=== PATIENT | female | born 1980 | race Caucasian/White ===

== ENCOUNTER 2016-05-08 18:42 | Emergency (ER) | payer MEDICAID, MEDICARE ==
[2016-05-08 18:54] VITALS: BP 131/50
[2016-05-08] MEDS ORDERED: Azithromycin TAB* 250 MG PO ONE (19:03)
[2016-05-08] MEDS ORDERED: Benzonatate CAP* 100 MG PO ONE (19:04)
--- NOTE | 2016-05-08 19:17 | UC ---
Respiratory Complaint HPI - HPI Summary HPI Summary: pt c/o URI symptoms for 4 weeks. c/o cough, chest congestion, SOB has worsened over last week. - History of Current Complaint Chief Complaint: UCGeneralIllness Stated Complaint: UPPER RESPIRATORY Time Seen by Provider: 05/08/16 18:53 Hx Obtained From: Patient Hx Last Menstrual Period: >1 year ago ?: No Onset/Duration: Gradual Onset, Lasting Weeks Timing: Constant Severity Initially: Mild Severity Currently: Mild Character: Cough: Nonproductive Aggravating Factors: Exertion, Deep Breaths, Recumbent Position Alleviating Factors: Nothing Associated Signs And Symptoms: Positive: Wheezing, URI, Nasal Congestion - Risk Factors Pulmonary Embolism Risk Factors: Negative Cardiac Risk Factors: Negative - Allergies/Home Medications Allergies/Adverse Reactions: Allergies Allergy/AdvReac Type Severity Reaction Status Date / Time Latex Allergy Itching Verified 05/08/16 18:54 Penicillins Allergy Hives Verified 05/08/16 18:54 Meloxicam [From Mobic] AdvReac See Comment Verified 05/08/16 18:54 Prochlorperazine AdvReac Agitation Verified 05/08/16 18:54 [From Compazine] Topiramate [From Topamax] AdvReac See Comment Verified 05/08/16 18:54 Home Medications: Home Medications [id number] W/ APAP [Tylenol Cold & Flu Severe [id number] mg] 1 tab PO DAILY 05/08/16 [History Confirmed 05/08/16] PMH/Surg Hx/FS Hx/Imm Hx Previously Healthy: Yes Cardiovascular History Of: Reports: Hypertension - Surgical History Surgical History: Yes Surgery Procedure, Year, and Place: spinal fusion 2011. gallbladder removed 2010. tonsillectomy 1997 - Family History Known Family History: Positive: Hypertension - Social History Alcohol Use: Rare Substance Use Type: None Smoking Status (MU): Heavy Every Day Tobacco Smoker Type: Cigarettes Amount Used/How Often: 1/2 PPD Length of Time of Smoking/Using Tobacco: began at age 15 Have You Smoked in the Last Year: Yes Household Exposure Type: Cigarettes Review of Systems Constitutional: Fatigue Skin: Negative Eyes: Negative ENT: Other - nasal congestion Respiratory: Shortness Of Breath, Cough Cardiovascular: Negative Gastrointestinal: Negative Genitourinary: Negative Motor: Negative Neurovascular: Negative Musculoskeletal: Negative Neurological: Headache Psychological: Negative All Other Systems Reviewed And Are Negative: Yes Physical Exam Triage Information Reviewed: Yes Appearance: Ill-Appearing Vital Signs: Initial Vital Signs Temp 97.9 F 05/08/16 18:49 Pulse 92 05/08/16 18:49 Resp 18 05/08/16 18:49 BP 131/50 05/08/16 18:49 Pulse Ox 100 05/08/16 18:49 Vital Signs Reviewed: Yes Eye Exam: Normal ENT Exam: Other ENT: Positive: Nasal congestion, Other: - frontal sinus tenderness Neck exam: Normal Respiratory Exam: Other Respiratory: Positive: Wheezing Cardiovascular Exam: Normal Musculoskeletal Exam: Normal Neurological Exam: Normal Psychological Exam: Normal Skin Exam: Normal UC Diagnostic Evaluation - Laboratory O2 Sat by Pulse Oximetry: 100 Respiratory Course/Dx - Differential Dx/Diagnosis Differential Diagnosis/HQI/PQRI: Bronchitis, Influenza, Sinusitis Provider Diagnoses: bronchitis Discharge - Discharge Plan Condition: Stable Disposition: HOME Prescriptions: Azithromycin TAB* [Zithromax TAB (Z-SHERI) 250 mg #6 tabs] 2 tab PO .TODAY, THEN 1 DAILY #1 sheri Benzonatate CAP* [Tessalon CAP*] 100 mg PO TID #30 cap Patient Education Materials: Acute Bronchitis (ED) Referrals: Elizabeth Cedeno PA [Primary Care Provider] -
== END 2016-05-08 19:28 | disposition home or self-care (01) ==
LOC: UCCORT 18:42
DX: J40 Bronchitis, not specified as acute or chronic (principal); Z88.0 Allergy status to penicillin; Z88.8 Allergy status to other drugs, medicaments and biological substances; Z90.49 Acquired absence of other specified parts of digestive tract; F17.210 Nicotine dependence, cigarettes, uncomplicated
CPT/HCPCS: 99212; A9270-GY; G0463

== ENCOUNTER 2016-09-30 13:24 | Emergency (ER) | payer MEDICARE, MEDICAID ==
[2016-09-30 14:15] VITALS: BP 112/56
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
--- NOTE | 2016-09-30 15:19 | RAD ---
INDICATION: Nosebleed following direct trauma. Concern for nasal bone fracture. COMPARISON: No relevant prior exams available on the [facility] PACS for comparison. TECHNIQUE: Multidetector CT base of the skull through mandible without contrast. Multiplanar reformation. REPORT: Mild soft tissue swelling over the bridge of the nose. Negative for subcutaneous emphysema. Negative for soft tissue hematoma. Unremarkable orbital contents. The orbital and maxillary sinus margins, zygomatic arches, lamina papyracea, base of the maxilla, pterygoid plates, and nasal bones are intact. No fracture of the partially visualized mandible evident. Normal temporal mandibular joint alignment. Clear paranasal sinuses and visualized mastoid air spaces. Pneumatization of the RIGHT middle nasal turbinate. Slight leftward deviation of the nasal septum. IMPRESSION: Negative for nasal bone or other maxillofacial fracture.
== END 2016-09-30 15:33 | disposition home or self-care (01) ==
LOC: UCCORT 13:24
DX: S00.33XA Contusion of nose, initial encounter (principal); W50.0XXA Accidental hit or strike by another person, initial encounter; F17.210 Nicotine dependence, cigarettes, uncomplicated
CPT/HCPCS: 70486; 99211; G0463

== ENCOUNTER 2017-05-09 16:52 | Emergency (ER) | payer MEDICARE, MEDICAID ==
[2017-05-09 18:19] VITALS: BP 158/97
--- NOTE | 2017-05-09 18:44 | RAD ---
HISTORY: Fall, pain, trauma, left third finger COMPARISONS: None VIEWS: 3, Frontal, lateral, and oblique views of the third digit of the left hand FINDINGS: BONE DENSITY: Normal. BONES: There is a nondisplaced fracture of the base of the middle phalanx of the third digit with articular extension. JOINTS: There is no arthropathy. ALIGNMENT: There is no dislocation. SOFT TISSUES: Unremarkable. OTHER FINDINGS: None. IMPRESSION: NONDISPLACED FRACTURE OF THE BASE OF THE MIDDLE PHALANX OF THE THIRD DIGIT OF LEFT HAND
--- NOTE | 2017-05-09 19:45 | UC ---
Hand/Wrist HPI - HPI Summary HPI Summary: Pt was walking up stairs - tripped and jammed left middle finger into wall. Pt reports pain in left middle finger. Pt did apply ice, Pt chronically takes Oxycontin or [place] - took today with mild improvement. Reports paresthesia distal finger pain with movement. Pt LHD no wrist or elbow pain pt's medications reviewed this visit - History Of Current Complaint Chief Complaint: UCUpperExtremity Stated Complaint: MIDDLE FINGER INJURY Time Seen by Provider: 05/09/17 19:36 Hx Obtained From: Patient Hx Last Menstrual Period: mirana Onset/Duration: Sudden Onset, Lasting Hours Severity Initially: Moderate Severity Currently: Moderate Pain Intensity: 8 Pain Scale Used: 0-10 Numeric Character Of Pain: Throbbing, Stiffness Aggravating Factor(s): Movement Alleviating Factor(s): Rest, Ice Associated Signs And Symptoms: Positive: Swelling, Bruising - Allergies/Home Medications Allergies/Adverse Reactions: Allergies Allergy/AdvReac Type Severity Reaction Status Date / Time MS Latex [Latex] Allergy Itching Verified 05/09/17 18:19 MS Penicillins [Penicillins] Allergy Hives Verified 05/09/17 18:19 MS Meloxicam [From Mobic] AdvReac See Comment Verified 05/09/17 18:19 MS Prochlorperazine AdvReac Agitation Verified 05/09/17 18:19 [From Compazine] MS Topiramate [From Topamax] AdvReac See Comment Verified 05/09/17 18:19 Home Medications: Home Medications Amlodipine Besylate [Norvasc 5 mg tab] 5 mg PO DAILY 05/09/17 [History Confirmed 05/09/17] PMH/Surg Hx/FS Hx/Imm Hx Previously Healthy: Yes - chronic back pain - Surgical History Surgical History: Yes Surgery Procedure, Year, and Place: spinal fusion 2011. gallbladder removed 2010. tonsillectomy 1997 - Family History Known Family History: Positive: Hypertension - Social History Occupation: Works From/At Home Lives: With Family Alcohol Use: Rare Substance Use Type: None Smoking Status (MU): Heavy Every Day Tobacco Smoker Type: Cigarettes Amount Used/How Often: 1/2 PPD Length of Time of Smoking/Using Tobacco: began at age 15 Have You Smoked in the Last Year: Yes Household Exposure Type: Cigarettes Review of Systems Constitutional: Negative Skin: Bruising Motor: Decreased ROM, Other - discomfort left middle finger Musculoskeletal: Decreased ROM Neurological: Paresthesia All Other Systems Reviewed And Are Negative: Yes Physical Exam Triage Information Reviewed: Yes Appearance: Well-Appearing, Pain Distress - with movement Vital Signs: Initial Vital Signs Temp 98.9 F 05/09/17 18:15 Pulse 86 05/09/17 18:15 Resp 18 05/09/17 18:15 BP 158/97 05/09/17 18:15 Pulse Ox 100 05/09/17 18:15 Eye Exam: Normal Eyes: Positive: Conjunctiva Clear ENT Exam: Normal ENT: Positive: Hearing grossly normal Dental Exam: Normal Neck exam: Normal Neck: Positive: Supple, Nontender, No Lymphadenopathy Respiratory Exam: Normal Respiratory: Positive: No respiratory distress, No accessory muscle use Cardiovascular Exam: Normal Cardiovascular: Positive: Other: - 2+ radial. 2+ ulnar CBT < 2 sec finger Musculoskeletal: Positive: Other: - + flex/ext elbow +pronate/supinate no pain along carpals +TTP metacarpals left middle finger + ecchymosis, edema along finger + circumferential edema + flex/ext MCP discomfort with flexion at PIP and DIP second to pain and swelling Neurological Exam: Normal Neurological: Positive: Alert, Other: - + gross sensation throughout tip Psychological Exam: Normal Skin Exam: Normal Diagnostics - Radiology No standard instances Xray Interpretation: Positive (See Comments) - FINDINGS: BONE DENSITY: Normal. BONES: There is a nondisplaced fracture of the base of the middle phalanx of the third digit with articular extension. JOINTS: There is no arthropathy. ALIGNMENT: There is no dislocation. SOFT TISSUES: Unremarkable. OTHER FINDINGS : None. IMPRESSION: NONDISPLACED FRACTURE OF THE BASE OF THE MIDDLE PHALANX OF THE THIRD DIGIT OF LEFT HAND <Electronically signed by Clark Reyes MD in [place]> 05/09/171840 Dictated By: Clark Reyes MD Dictated Date/Time: 05/09/171840 Transcribed Date/Time: 05/09/171839 Copy to: Radiology Interpretation Completed By: Radiologist Hand/Wrist Course/Dx - Course Course Of Treatment: pt with left middle finger edema and ecchymosis after slip and fall this morning. Pt without other injuries. image. splint. motrin. ice. elevate. ortho - Differential Dx/Diagnosis Provider Diagnoses: non displaced left phalynx middle fx Discharge - Discharge Plan Condition: Stable Disposition: HOME Patient Education Materials: Finger Fracture (ED) Referrals: Mason Clark MD [Medical Doctor] - Elizabeth Cedeno PA [Primary Care Provider] - Additional Instructions: - wear splint for comfort and support - Okay to take ibuprofen (advil, motrin) 600mg every 6 hours -take with food - take your other pain medication as previously prescribed - elevate to help with swelling and pain - Contact the orthopedic provider to schedule a follow-up appointment.
[2017-05-09] MEDS ORDERED: Ibuprofen TAB* 600 MG PO ONE (19:55)
== END 2017-05-09 20:13 | disposition home or self-care (01) ==
LOC: UCCORT 16:52
DX: S62.651A Nondisplaced fracture of middle phalanx of left index finger, initial encounter for closed fracture (principal); W10.9XXA Fall (on) (from) unspecified stairs and steps, initial encounter; Y93.9 Activity, unspecified; Y92.9 Unspecified place or not applicable; F17.210 Nicotine dependence, cigarettes, uncomplicated
CPT/HCPCS: 26720; 73140; 99212; A9270-GY; G0463

== ENCOUNTER 2017-07-06 12:24 | Emergency (ER) | payer MEDICARE, MEDICAID ==
--- OUTSIDE RECORDS SUMMARY | 2017-07-06 12:48 | XMS REPORT ---
:1980 External Reference #:[id number] Author Organization [facility] Address [address] [place] [address] Phone [phone] Care Team Providers Name Role Phone Elizabeth CedenoADEOLA Primary Care Physician Unavailable Payers Type Date Identification Numbers Payment Provider Subscriber Medicare Primary Policy Number: [id number] Medicare July Alejandrina PayID: [id number] [address] [place] [address] [facility] Part [facility] Policy Number: [id number] Medicaid July Alejandrina Group Name: 1 1 [address] PayID: [id number] [place] [address] Problems Description No Active Problems Family History Date Family Member(s) Problem(s) Comments General No Current Problems Social History Type Date Description Comments Lives With Spouse Occupation Unemployed ETOH Use Denies alcohol use Smoking Light tobacco smoker (10 or fewer cigarettes/day) Exercise Type/Frequency Exercises sporadically Allergies, Adverse Reactions, Alerts Date Description Reaction Status Severity Comments 05/11/2017 Penicillin Nausea and Vomiting active hives 05/11/2017 Topamax Nausea and Vomiting active 05/11/2017 Mobic Nausea and Vomiting active 05/11/2017 Latex itchy rash active Medications Medication Date Status Form Strength Qnty SIG Indications Ordering Provider Mirena (52 MG) Active Unknown 000 Amlodipine Active Unknown Besylate 000 Benazepril HCL Active Unknown 000 Hydrocodone-Ac Active Unknown etaminophen 000 Oxymorphone Active Unknown HCL ER 000 Oxymorphone Hx Tablets ER 15mg 21tabs 1 by Faviola HCL ER 018 - 12HR mouth 2x Bonilla, M.D. a day 018 Hydrocodone-Ac Hx Tablets 10-325mg 90tabs 1 tab by Faviola etaminophen Schuyler Bonilla M.D. every 12 018 hours as needed Benazepril HCL Hx Tablets 40mg 1 by Faviola Bnoilla M.D. every 018 day Amlodipine Hx Tablets 5mg 90tabs 1 by Faviola Besylate Schuyler Ortiz mouth Yessenia Bonlila every 018 day Mirena (52 MG) Hx IUD 20mcg/24HR Faviola Bonilla M.D. 018 Vital Signs Date Vital Result Comment 07/03/2017 Height 63 inches 5'3" Weight 225.00 lb Heart Rate 88 /min BP Systolic 176 mmHg BP Diastolic 98 mmHg Respiratory Rate 14 /min Body Temperature 98.1 F Pain Level 3 BMI (Body Mass Index) 39.9 kg/m2 05/25/2017 Height 63 inches 5'3" Weight 225.00 lb BP Systolic 122 mmHg BP Diastolic 76 mmHg Respiratory Rate 17 /min Body Temperature 97.6 F Pain Level 5 BMI (Body Mass Index) 39.9 kg/m2 05/11/2017 Height 63 inches 5'3" Weight 225.00 lb Heart Rate 99 /min BP Systolic 142 mmHg BP Diastolic 80 mmHg Respiratory Rate 17 /min Body Temperature 97.8 F Pain Level 7 BMI (Body Mass Index) 39.9 kg/m2 Results Description No Information Procedures Date CPT Code Description Status 05/11/2017 [address]4926 Closed [place] Articular FX,Invol Metacarpophalangeal Or Completed Interphal JT Plan of Care 07/03/2017 - Alycia Sanders, [facility]-CS62.653D Nondisp fx of middle phalanx of left middle finger, 7thDFollow up:Follow up: As needed
--- OUTSIDE RECORDS SUMMARY | 2017-07-06 12:49 | XMS REPORT ---
:1980 External Reference #:[id number] Author Organization [facility] Address [address] [place] [address] Phone [phone] Care Team Providers Name Role Phone Elizabeth CedenoADEOLA Primary Care Physician Unavailable Payers Type Date Identification Numbers Payment Provider Subscriber Medicare Primary Policy Number: [id number] Medicare July Alejandrina PayID: [id number] [address] [place] [address] [facility] Part B Policy Number: [id number] Medicaid July Alejandrina Group Name: 1 1 [address] PayID: [id number] [place] [address] Problems Description No Active Problems Family History [...] HCL Hx Tablets 40mg 1 by Faviola Bonilla M.D. every 018 day Amlodipine Hx Tablets 5mg 90tabs 1 by Faviola Besylate Schuyler Ortiz mouth Yessenia Bonilla every 018 day Mirena (52 MG) Hx [...] Procedures Date CPT Code Description Status 05/11/2017 66728 Closed [place] Articular FX,Invol Metacarpophalangeal Or Completed Interphal JT Plan of Care 05/25/2017 - Alycia Sanders, [facility]-CS62.653D Nondisp fx of middle phalanx of left middle finger, 7thDFollow up:Follow up: 3 weeks
--- NOTE | 2017-07-10 11:57 | UC ---
- Progress Note Progress Note: please call this pt and let her know that her cx revealed organisms that are not routinely check for sensitivities. if her sx are improving on doxy, no need to change. if sx are not improving or if new sx have developed, she should be re-seen. Discharge - Sign-Out/Discharge Documenting (check all that apply): Post-Discharge Follow Up - Discharge Plan Disposition: LEFT WITHOUT BEING SEEN Referrals: Elizabeth Cedeno PA [Primary Care Provider] - - Billing Disposition and Condition Disposition: LWBS
== END 2017-07-06 13:00 | disposition left against medical advice (07) ==
LOC: UCCORT 12:24
DX: N94.9 Unspecified condition associated with female genital organs and menstrual cycle (principal); Z53.21 Procedure and treatment not carried out due to patient leaving prior to being seen by health care provider

== ENCOUNTER 2017-07-06 17:20 | Emergency (ER) | payer MEDICARE, MEDICAID ==
--- NOTE | 2017-07-06 18:32 | UC ---
Complaint Female HPI - HPI Summary HPI Summary: 37 year old female with complaint. Pt suspects she may have ruptured cyst on mons pubis. States she notice lump on mons pubis x1 year- couple months ago she was able to get rid of cyst by squeezing out pus. Since yesterday pt has noticed foul-smelling, bloody/white pus-like drainage from lump. States it is now painful to touch. Denies fever. Has had 4 infections or so in the past 1 year from this. No fever. Has had some drainage today that is purulent . [ End ] - History Of Current Complaint Stated Complaint: FEMALE COMPLAINT Time Seen by Provider: 07/06/17 18:31 Hx Obtained From: Patient Hx Last Menstrual Period: mirana Onset/Duration: Sudden Onset Timing: Constant Severity Initially: Moderate Severity Currently: Moderate - Allergies/Home Medications Allergies/Adverse Reactions: Allergies Allergy/AdvReac Type Severity Reaction Status Date / Time latex Allergy Itching Verified 07/06/17 18:38 meloxicam [From Mobic] Allergy See Comment Verified 07/06/17 18:38 Penicillins Allergy Hives Verified 07/06/17 18:38 prochlorperazine Allergy Agitation Verified 07/06/17 18:38 [From Compazine] topiramate [From Topamax] Allergy See Comment Verified 07/06/17 18:38 PMH/Surg Hx/FS Hx/Imm Hx Previously Healthy: Yes Cardiovascular History: Hypertension - Surgical History Surgical History: Yes Surgery Procedure, Year, and Place: spinal fusion 2011. gallbladder removed 2010. tonsillectomy 1997 - Family History Known Family History: Positive: Hypertension - Social History Occupation: Employed Full-time Lives: With Family Alcohol Use: Rare Substance Use Type: None Smoking Status (MU): Heavy Every Day Tobacco Smoker Type: Cigarettes Amount Used/How Often: 1/2 PPD Length of Time of Smoking/Using Tobacco: began at age 15 Have You Smoked in the Last Year: Yes Household Exposure Type: Cigarettes Review of Systems Skin: Other - abscess Is Patient Immunocompromised?: No All Other Systems Reviewed And Are Negative: Yes Physical Exam Triage Information Reviewed: Yes Appearance: Well-Appearing, Well-Nourished Vital Signs Reviewed: Yes Eye Exam: Normal Neck exam: Normal Neck: Positive: 1 Respiratory Exam: Normal Cardiovascular Exam: Normal Musculoskeletal Exam: Normal Neurological Exam: Normal Psychological Exam: Normal Skin Exam: Normal Skin: Positive: Other - left lateral mons pubis with indurated abscess drainaing purulent material about the size of golf ball. no streaking. tenderness to palpation. was able to easily express purulent material for culture. Complaint Female Dx - Course Course Of Treatment: treat at this time with the redness / purulent abscess. advised to keep open, no tight clothing, no shaving there at this time and f/u with PCP and may need excision in the future due to recurrent infection - Differential Dx/Diagnosis Provider Diagnoses: groin abscess Discharge - Sign-Out/Discharge Documenting (check all that apply): Discharge - Discharge Plan Condition: Good Disposition: HOME Prescriptions: Doxycycline Hyclate 100 mg PO BID #20 tablet Patient Education Materials: Abscess (ED) Referrals: Elizabeth Cedeno PA [Primary Care Provider] - 4 Days - Billing Disposition and Condition Condition: GOOD Disposition: HOME
[2017-07-06 18:51] VITALS: BP 127/58
== END 2017-07-06 19:17 | disposition home or self-care (01) ==
LOC: UCCORT 17:20
DX: L02.214 Cutaneous abscess of groin (principal); F17.210 Nicotine dependence, cigarettes, uncomplicated; I10 Essential (primary) hypertension
CPT/HCPCS: 87070; 87077; 87186; 87205; 87640; 87641; 99212; G0463

== ENCOUNTER 2018-01-06 12:27 | Emergency (ER) | payer MEDICARE, MEDICAID ==
[2018-01-06 13:01] VITALS: BP 125/67
--- NOTE | 2018-01-06 13:13 | UC ---
Hand/Wrist HPI - HPI Summary HPI Summary: patient fell walking her dog, off her porch, injuring her right wrist which was flexed and internally rotated at the time. since that time the pain has increased, without relief - History Of Current Complaint Chief Complaint: UCUpperExtremity Stated Complaint: RIGHT WRIST INJURY Time Seen by Provider: 01/06/18 12:46 Hx Obtained From: Patient Hx Last Menstrual Period: unknown ?: No Onset/Duration: Sudden Onset Severity Initially: Moderate Severity Currently: Moderate Pain Intensity: 5 Character Of Pain: Sharp, Dull Aggravating Factor(s): Movement, Flexion, Extension - Allergies/Home Medications Allergies/Adverse Reactions: Allergies Allergy/AdvReac Type Severity Reaction Status Date / Time latex Allergy Itching Verified 07/06/17 18:38 meloxicam [From Mobic] Allergy See Comment Verified 07/06/17 18:38 Penicillins Allergy Hives Verified 07/06/17 18:38 prochlorperazine Allergy Agitation, Verified 01/06/18 13:02 [From Compazine] IV formulation topiramate [From Topamax] Allergy See Comment Verified 07/06/17 18:38 Home Medications: Home Medications Metoprolol Succinate [Metoprolol Succinate ER] 25 mg PO DAILY 01/06/18 [History Confirmed 01/06/18] PMH/Surg Hx/FS Hx/Imm Hx Previously Healthy: Yes - Surgical History Surgical History: Yes Surgery Procedure, Year, and Place: spinal fusion 2011. gallbladder removed 2010. tonsillectomy 1997 - Family History Known Family History: Positive: Hypertension - Social History Alcohol Use: Rare Substance Use Type: None Smoking Status (MU): Heavy Every Day Tobacco Smoker Type: Cigarettes Amount Used/How Often: 1/2 PPD Length of Time of Smoking/Using Tobacco: began at age 15 Have You Smoked in the Last Year: Yes Household Exposure Type: Cigarettes Review of Systems Constitutional: Negative Skin: Negative Eyes: Negative ENT: Negative Respiratory: Negative, Cough Gastrointestinal: Negative Genitourinary: Negative Motor: Negative Musculoskeletal: Other: - pain right wrist, on ulnar and radial motion and flexion and extension Is Patient Immunocompromised?: No All Other Systems Reviewed And Are Negative: Yes Physical Exam Triage Information Reviewed: Yes Appearance: Well-Appearing Vital Signs: Initial Vital Signs Temp 36.9 C 01/06/18 12:52 Pulse 81 01/06/18 12:52 Resp 18 01/06/18 12:52 BP 125/67 01/06/18 12:52 Pulse Ox 99 01/06/18 12:52 Vital Signs Reviewed: Yes Eye Exam: Normal Eyes: Positive: Conjunctiva Clear Musculoskeletal: Positive: Other: - pain and swelling in the right wrist, pain over the proximal thumb Neurological Exam: Normal Psychological Exam: Normal Skin Exam: Normal Hand/Wrist Course/Dx - Differential Dx/Diagnosis Provider Diagnoses: wrist sprain Discharge - Sign-Out/Discharge Documenting (check all that apply): Patient Departure All imaging exams completed and their final reports reviewed: Yes - Discharge Plan Condition: Good Disposition: HOME Patient Education Materials: Wrist Sprain (ED) Referrals: Elizabeth Cedeno PA [Primary Care Provider] - Additional Instructions: if symptoms persist will need repeat xray. splint is for comfort. loosen if swelling, pain or numbness ensue - Billing Disposition and Condition Condition: GOOD Disposition: Home
--- NOTE | 2018-01-06 13:32 | RAD ---
INDICATION: RIGHT wrist and hand pain post fall. COMPARISON: None. TECHNIQUE: AP, lateral, and oblique views RIGHT wrist. REPORT AND IMPRESSION: #. Normal articular alignment. No cortical disruption or suspicious trabecular irregularity to suggest fracture. Mild nonfocal soft tissue swelling.
--- NOTE | 2018-01-06 13:34 | RAD ---
INDICATION: Pain post fall onto the RIGHT wrist and hand. COMPARISON: Wrist exam of the same date. TECHNIQUE: AP, lateral, and oblique views RIGHT hand. REPORT AND IMPRESSION: #. Negative for fracture or articular malalignment. Mild diffuse soft tissue swelling most prominent at the second finger.
== END 2018-01-06 14:09 | disposition home or self-care (01) ==
LOC: UCCORT 12:27
DX: J40 Bronchitis, not specified as acute or chronic (principal); Z87.891 Personal history of nicotine dependence
CPT/HCPCS: 99212; G0463

== ENCOUNTER 2018-06-11 09:30 | Emergency (ER) | payer MEDICAID, MEDICARE ==
[2018-06-11 11:47] VITALS: BP 145/75
[2018-06-11] MEDS ORDERED: Albuterol 2.5 MG/3 ML NEB.SOL* (0.083%) INH ONE (11:50)
[2018-06-11] MEDS ORDERED: predniSONE TAB* 20 MG PO ONE (11:50)
--- NOTE | 2018-06-11 11:56 | UC ---
UC General HPI - HPI Summary HPI Summary: pt c/o headache, cough with congestion, sob, wheezing. she is also c/o headache and bodyaches. onset was 7 days ago. her entire family has had the same but they all got better after 3 days. + fever and some n/v at onset. + hx asthma plus smokes. 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 - History of Current Complaint Chief Complaint: UCRespiratory Stated Complaint: FEVER WHEEZY COUGH Time Seen by Provider: 06/11/18 11:44 Hx Obtained From: Patient Hx Last Menstrual Period: unknown Timing: Constant Pain Intensity: 5 Associated Signs & Symptoms: Negative: Abdominal Pain, Chest Pain - Allergy/Home Medications Allergies/Adverse Reactions: Allergies Allergy/AdvReac Type Severity Reaction Status Date / Time latex Allergy Itching Verified 06/11/18 11:42 meloxicam [From Mobic] Allergy See Comment Verified 06/11/18 11:42 Penicillins Allergy Hives Verified 06/11/18 11:42 prochlorperazine Allergy Agitation, Verified 06/11/18 11:42 [From Compazine] IV formulation topiramate [From Topamax] Allergy See Comment Verified 06/11/18 11:42 Home Medications: Home Medications Acetaminophen [Acetaminophen Extra Strength] 500 mg PO Q6H PRN 06/11/18 [ History Confirmed 06/11/18] Albuterol HFA INHALER* [Ventolin HFA Inhaler*] 1 - 2 puff INH Q4H PRN 06/11/18 [ History Confirmed 06/11/18] Ibuprofen TAB* [Advil TAB*] 800 mg PO Q8H PRN 06/11/18 [History Confirmed ] oxyCODONE SR TAB(*) [Oxycontin(*)] 15 mg PO BID 06/11/18 [History Confirmed 02/19] PMH/Surg Hx/FS Hx/Imm Hx - Additional Past Medical History Additional PMH: disc dz with chronic pain Cardiovascular History: Hypertension Respiratory History: Asthma - Surgical History Surgical History: Yes Surgery Procedure, Year, and Place: spinal fusion 2011. gallbladder removed 2010. tonsillectomy 1997 - Family History Known Family History: Positive: Hypertension - Social History Lives: With Family Alcohol Use: Rare Substance Use Type: Prescribed Substance Use Comment - Amount & Last Used: Hydrocodone and Oxycodone Smoking Status (MU): Heavy Every Day Tobacco Smoker Type: Cigarettes Amount Used/How Often: 1/2 PPD Length of Time of Smoking/Using Tobacco: Since Age 16 Have You Smoked in the Last Year: Yes Household Exposure Type: Cigarettes Review of Systems All Other Systems Reviewed And Are Negative: Yes Constitutional: Positive: Fever, Chills, Fatigue Respiratory: Positive: Shortness Of Breath, Cough Cardiovascular: Negative: Palpitations, Chest Pain Gastrointestinal: Positive: Vomiting, Nausea Musculoskeletal: Positive: Myalgia Neurological: Positive: Headache Is Patient Immunocompromised?: No Physical Exam Triage Information Reviewed: Yes Appearance: Ill-Appearing - but non toxic Vital Signs: Initial Vital Signs Temp 97.5 F 06/11/18 11:44 Pulse 84 06/11/18 11:44 Resp 22 06/11/18 11:44 BP 145/75 06/11/18 11:44 Pulse Ox 99 06/11/18 11:44 Vital Signs Reviewed: Yes Eyes: Positive: Conjunctiva Clear ENT: Positive: Pharynx normal, TMs normal. Negative: Nasal drainage, Sinus tenderness Neck: Positive: Supple, Nontender, No Lymphadenopathy Respiratory: Positive: Lungs clear, No respiratory distress, Decreased breath sounds, Other: - Non productive bronchospastic cough. Cardiovascular: Positive: RRR, No Murmur Abdomen Description: Positive: Nontender, No Organomegaly, Soft Bowel Sounds: Positive: Present Musculoskeletal: Positive: ROM Intact Neurological: Positive: Alert Psychological: Positive: Age Appropriate Behavior Skin Exam: Normal Course/Dx - Differential Dx - Multi-Symptom Differential Diagnoses: Other - non toxic. no concern for pneumonia. s/s's at onset are similar to local influenza; however, pt on day 7 of illness thus no tamiflu. - Diagnoses Provider Diagnosis: Asthma Discharge - Sign-Out/Discharge Documenting (check all that apply): Patient Departure All imaging exams completed and their final reports reviewed: No Studies - Discharge Plan Condition: Stable Disposition: HOME Prescriptions: Albuterol HFA INHALER* [Ventolin HFA Inhaler*] 2 puff INH Q6H #1 mdi Azithromycin TAB* [Zithromax TAB (Z-SHERI) 250 mg #6 tabs] 2 tab PO .TODAY, THEN 1 DAILY #1 sheri predniSONE [Prednisone 20 MG TAB] 40 mg PO DAILY 4 Days #8 tablet Patient Education Materials: Asthma (DC) Referrals: Elizabeth Cedeno PA [Primary Care Provider] - 5 Days - Billing Disposition and Condition Condition: STABLE Disposition: Home - Attestation Statements Provider Attestation: I was available for consult. This patient was seen by the OLVIN. The patient was not presented to, seen by, or examined by me. -[place]
== END 2018-06-11 12:24 | disposition home or self-care (01) ==
LOC: UCCORT 09:30
DX: J45.909 Unspecified asthma, uncomplicated (principal); I10 Essential (primary) hypertension; Z88.0 Allergy status to penicillin; Z88.8 Allergy status to other drugs, medicaments and biological substances; Z91.040 Latex allergy status
CPT/HCPCS: 99212; G0463; J7512

== ENCOUNTER 2019-02-25 13:27 | Emergency (ER) | payer MEDICARE ==
--- OUTSIDE RECORDS SUMMARY | 2019-02-25 13:35 | XMS REPORT | Continuity of Care Document ---
:1980 External Reference #:[id number] Author Name Jasiel Lindsey MD Address [address] [place] [address] Care Team Providers Name Role Phone Yefri Temple MD - Neurology Care Team Information [place] [employer] Maliha Jaeger MD - Neurology Care Team Information [place] [employer] [phone] Jasiel Lindsey MD - Family Medicine Care Team Information [place] [employer] [phone] Problems Active Problems Provider Date Carcinoma in situ of uterine cervix Elizabeth Cedeno [facility] Onset: 10/31/2013 Note: last tx 2011 Essential hypertension Elizabeth Cedeno [facility] Onset: 09/09/2014 Cigarette smoker Elizabeth Cedeno [facility] Onset: 09/09/2014 Lumbar post-laminectomy syndrome Elizabeth Cedeno [facility] Onset: 09/09/2014 Steatosis of liver Elizabeth Cedeno [facility] Onset: 11/25/2014 Chest pain Gordon Issa M.D., [facility] Onset: 02/01/2017 Gastroesophageal reflux disease Gordon Issa M.D., [facility] Onset: 2016 Plantar fascial fibromatosis Omar Begum M.D. Onset: 06/01/2017 Vitamin D deficiency Elizabeth Cedeno [facility] Onset: 08/19/2017 Body mass index 30+ - obesity Elizabeth Cedeno [facility] Onset: 08/15/2017 Social History Type Date Description Comments Sex Unknown Tobacco Use Start: Unknown Current Cigarette Smoker [Quit/Chantix 5-10 Cigarettes Daily 10/2016] Restarted 2017 1ppd ETOH Use Rarely consumes alcohol ETOH Use Occasionally consumes alcohol Recreational Drug Use Denies Drug Use Tobacco Use Start: Unknown Patient is a current smoker, smokes some days Smoking Status Reviewed: 02/21/19 Patient is a current smoker, smokes some days Allergies, Adverse Reactions, Alerts Active Allergies Reaction Severity Comments Date Penicillin vomiting, severe CREWS, hives 10/18/2010 Penicillins Nausea, okay for Amoxil 07/28/2011 Compazine Cannot Tolerate 07/28/2011 Mobic 04/08/2014 Topamax 04/08/2014 Latex 04/25/2014 Inactive Allergies Latex Rash, itching and burning. 05/12/2010 Toradol anxious, nasea and itching IV Torodaol 05/12/2010 Medications Active Medications SIG Qnty Indications Ordering Date Provider Chantix Starting Follow instructions 53tabs F17.210 Jasiel Lindsey, 2018 Month Bharathi on the packet 0.5mg X 11 & 1 mg X 42 Tablets Chantix Continuing Follow instruction 56tabs F17.210 Jasiel Lindsey, 02/21 Month Bharathi on packet. Start 1mg with Starter pack Tablets Metoprolol 1 tab by mouth every 90tabs I10 Jasiel Lindsey, 11/28/2017 Succinate ER day 25mg Tablets ER 24HR Omeprazole 1 by mouth every day 90caps K21.9 Farrukh Jensen, 11/16/[address] Amlodipine Besylate 1 by mouth every 90tabs I10 Jasiel Lindsey, 08/31/2016 day. 5mg Tablets Hydrocodone-Acetami one tab by mouth [facility] 07/21/2015 nophen every 12 hours as Wellness 10-325mg needed neck pain Tablets Oxycontin 1 by mouth every 12 Unknown 05/19/2015 15mg Tab hours ER 12H Abuse-Det Benazepril HCL 1 tab by mouth every 90tabs Jasiel Lindsey, 07/22/2014 40mg day Tablets Mirena from [facility], [facility] in [place], 02/01/2014 20mcg/24HR Calvin Trotter M.D. IUD Immunizations CPT Code Status Date Vaccine Lot # [id number] Given 02/12/2016 Influenza Vaccine (Fluzone) Age 3 And Older [id number] Given 02/18/2015 Influenza Vaccine (Fluzone) Age 3 And Older [id number] Given 01/17/2012 Tdap injection [id number] Given 01/17/2012 flu vaccination Vital Signs Date Vital Result Comment 02/21/2019 12:38pm BP Systolic Sitting Left Arm 142 mmHg BP Diastolic Sitting Left Arm 68 mmHg Body Temperature 97.6 F Heart Rate 88 /min Respiratory Rate 20 /min Height 64.5 inches 5'4.50" Weight 222.00 lb BMI (Body Mass Index) 37.5 kg/m2 BSA (Body Surface Area) 2.06 m2 [place] body weight in kilograms 56 kg O2 % BldC Oximetry 96 % 04/09/2018 1:42pm BP Systolic Sitting Right Arm 127 mmHg BP Diastolic Sitting Right Arm 74 mmHg Body Temperature 98.4 F Heart Rate 79 /min Respiratory Rate 16 /min Height 64.5 inches 5'4.50" Weight 231.00 lb BMI (Body Mass Index) 39.0 kg/m2 BSA (Body Surface Area) 2.09 m2 [place] body weight in kilograms 56 kg O2 % BldC Oximetry 96 % Results Description No Information Available Procedures Description No Information Available Medical Devices Description No Information Available Encounters Description No Information Available Assessments Date Code Description Provider 02/21/2019 I10 Essential (primary) hypertension Jasiel Lindsey MD 02/21/2019 F17.210 Nicotine dependence, cigarettes, uncomplicated Jasiel Lindsey MD Plan of Treatment Future Appointment(s):03/28/2019 1:10 pm - Jasiel Lindsey MD at [id number]/21/2019 - Jasiel Lindsey MDI10 Essential (primary) hypertensionNew Labs:Basic Metabolic Panel, Scheduled: 03/21/19CBC W/Automated Diff, Scheduled: 03/21/19Direct LDL Cholesterol, Scheduled: 03/21/19Comments:BP reviewed today. A little high. has been off all her meds for 1 week now. Will refill meds. She might not need to be on all three meds given her BP today. Asked to check BP at home 1-2 times a weeks and to keep a log then to bring this to follow up. Will follow up in 1 monthLabs are ordered.F17.210 Nicotine dependence, cigarettes, uncomplicatedNew Medication:Chantix Starting Month Bharathi 0.5 mg X 11 & 1 mg X 42 - Follow instructions on the packetChantix Continuing Month Bharathi 1 mg - Follow instruction on packet. Start with Starter packComments:Encouraged to quit smoking. She is interested. Chantix is prescribed.AllFollow up:1 month with labs prior Functional Status Description No Information Available Mental Status Description No Information Available Referrals Description No Information Available
[2019-02-25 13:46] VITALS: BP 155/76
[2019-02-25] MEDS ORDERED: Albuterol/Ipratropium NEB.SOL* Albuterol 2.5 MG/Ipratropium 0.5 MG 3 ML INH ONE (13:59)
--- NOTE | 2019-02-25 14:04 | UC ---
Respiratory Complaint HPI - HPI Summary HPI Summary: 39 year-old female who has had head congestion, chest congestion over the past 3 weeks. She is a smoker. She denies any fever or chills. - History of Current Complaint Chief Complaint: UCGeneralIllness Stated Complaint: ST,CHEST CONGESTION,COUGH Time Seen by Provider: 02/25/19 13:54 Hx Obtained From: Patient Hx Last Menstrual Period: Mirena ?: No Onset/Duration: Gradual Onset Timing: Intermittent Episodes Severity Initially: Mild Severity Currently: Moderate Pain Intensity: 7 Character: Cough: Productive Aggravating Factors: Exertion, Deep Breaths Alleviating Factors: Nothing Associated Signs And Symptoms: Positive: Wheezing, URI, Nasal Congestion, Sinus Discomfort - Allergies/Home Medications Allergies/Adverse Reactions: Allergies Allergy/AdvReac Type Severity Reaction Status Date / Time latex Allergy Itching Verified 02/25/19 13:46 meloxicam [From Mobic] Allergy See Comment Verified 02/25/19 13:46 Penicillins Allergy Hives Verified 02/25/19 13:46 prochlorperazine Allergy Agitation, Verified 02/25/19 13:46 [From Compazine] IV formulation topiramate [From Topamax] Allergy See Comment Verified 02/25/19 13:46 Home Medications: Home Medications Varenicline Tartrate [Chantix] 1 mg PO BID 02/25/19 [History Confirmed 02/25/19] PMH/Surg Hx/FS Hx/Imm Hx Previously Healthy: Yes Cardiovascular History: Cardiac Disease, Hypertension - Surgical History Surgical History: Yes Surgery Procedure, Year, and Place: spinal fusion 2011. gallbladder removed 2010. tonsillectomy 1997 - Family History Known Family History: Positive: Hypertension - Social History Occupation: Employed Full-time Alcohol Use: Rare Substance Use Type: Prescribed Substance Use Comment - Amount & Last Used: Hydrocodone and Oxycodone Smoking Status (MU): Heavy Every Day Tobacco Smoker Type: Cigarettes Amount Used/How Often: 1/2 PPD Length of Time of Smoking/Using Tobacco: Since Age 16 Have You Smoked in the Last Year: Yes Household Exposure Type: Cigarettes Review of Systems All Other Systems Reviewed And Are Negative: Yes ENT: Positive: Nasal Discharge, Sinus Congestion Respiratory: Positive: Cough Is Patient Immunocompromised?: No Physical Exam Triage Information Reviewed: Yes Appearance: Well-Appearing, No Pain Distress, Well-Nourished Vital Signs: Initial Vital Signs Temp 98.2 F 02/25/19 13:43 Pulse 102 02/25/19 13:43 Resp 20 02/25/19 13:43 BP 155/76 02/25/19 13:43 Pulse Ox 95 02/25/19 13:43 Vital Signs Reviewed: Yes Eyes: Positive: Conjunctiva Clear ENT: Positive: Pharynx normal - Yellow purulent postnasal drainage., Nasal congestion - Yellow purulent nasal coryza., Nasal drainage, TMs normal, Uvula midline Neck: Positive: Supple, Nontender, No Lymphadenopathy Respiratory: Positive: No respiratory distress, No accessory muscle use, Rhonchi , Wheezing Cardiovascular: Positive: RRR, No Murmur, Pulses Normal, Brisk Capillary Refill Musculoskeletal Exam: Normal Neurological Exam: Normal Psychological Exam: Normal Skin Exam: Normal Respiratory Course/Dx - Course Course Of Treatment: Chest x-ray:Indication: Productive cough. 2 views of the chest are reviewed including dual energy PA views. There is suggestion of some coarsening of the vascular markings in left base which may represent early left basilar pneumonia. No pleural fluid is identified. IMPRESSION: Findings suggestive of early pneumonia in the left base. DuoNeb treatment: Much better air movement throughout all lung lamas, patient states she feels better following the nebulizer treatment. I am going to treat her with doxycycline, refill her albuterol inhaler to continue 2 puffs every 4-6 hours as needed for wheezing or tight cough, also give her benzonatate 3 times a day as needed for cough. She does have a primary care provider however she can't think of the name and I advised her to follow-up with them before the doxycycline is completed to see if they want to repeat the chest x-ray to see if the pneumonia has cleared. She is to go to the emergency room if she has any worsening symptoms. - Differential Dx/Diagnosis Provider Diagnosis: LLL pneumonia Discharge ED - Sign-Out/Discharge Documenting (check all that apply): Patient Departure All imaging exams completed and their final reports reviewed: Yes - Discharge Plan Condition: Fair Disposition: HOME Prescriptions: Albuterol HFA INHALER* [Ventolin HFA Inhaler*] 2 puff INH Q4H PRN 5 Days #1 mdi PRN Reason: Wheezing Benzonatate CAP* [Tessalon 100 MG CAP*] 100 mg PO TID PRN #30 cap PRN Reason: Cough DOXYcycline CAP(*) [DOXYcycline 100MG CAP(*)] 100 mg PO BID 10 Days #20 cap Patient Education Materials: Community Acquired Pneumonia (DC) Referrals: No Primary Care Phys,NOPCP [Primary Care Provider] - Additional Instructions: Increase fluids, continue your albuterol inhaler 2 puffs every 4-6 hours as needed for wheezing or tight cough, no dairy products, antacids or multivitamins 2 hours before you take the doxycycline and 2 hours after you take doxycycline however be sure and take it with food. Definite follow-up with your primary care provider with [facility] in 3 or 4 days if no improvement and go to the ER if you have any worsening symptoms. Your primary care provider may want to see you after the doxycycline is finished to see if the pneumonia has cleared. - Billing Disposition and Condition Condition: FAIR Disposition: Home
== END 2019-02-25 14:36 | disposition home or self-care (01) ==
LOC: UCCORT 13:27
DX: J18.1 Lobar pneumonia, unspecified organism (principal); I10 Essential (primary) hypertension; R09.81 Nasal congestion; F17.210 Nicotine dependence, cigarettes, uncomplicated; Z91.040 Latex allergy status; Z88.0 Allergy status to penicillin; Z88.8 Allergy status to other drugs, medicaments and biological substances; Z88.6 Allergy status to analgesic agent
CPT/HCPCS: 71046; 99212; A9270-GY; G0463